=== PATIENT | male | born 1955 | race Caucasian/White ===

== ENCOUNTER 2016-11-23 12:34 | Emergency (ER) | payer BC ==
[~2016-11-23] VITALS: Ht 182.9 cm; Wt 101.0 kg
[2016-11-23 12:38] VITALS: BP 203/93; PULSE 56; RESP 16; TEMP 98.4; O2SAT 96
[2016-11-23] MEDS ORDERED: TRIBTAB PO (13:48)
[2016-11-23] MEDS ORDERED: PAXI10TA2 PO (13:50)
[2016-11-23] MEDS ORDERED: PERC10TA27 PO (13:50)
[2016-11-23 13:56] VITALS: O2SAT 97
[2016-11-23 14:02] VITALS: BP 184/92; PULSE 69; RESP 18; O2SAT 97
[2016-11-23 14:10] LABS: CHLORIDE 102 MEQ/L (98-107); POTASSIUM 3.8 MEQ/L (3.5-5.1); SODIUM (NA) 140 MEQ/L (136-145)
[2016-11-23 14:12] LABS: AUTOMATED NEUTROPHIL # 16.9 TH/MM3 (1.8-7.7); BASOPHIL % 0.2 % (0.0-2.0); HEMATOCRIT 48.7 % (39.0-51.0); LYMPH % 3.9 % (9.0-44.0); LYMPHOCYTE # 0.7 TH/MM3 (1.0-4.8); MEAN CELL VOLUME 92.4 FL (80.0-100.0); MEAN CORPUSCULAR HEMOGLOBIN 30.4 PG (27.0-34.0); MEAN CORPUSCULAR HGB CONC 32.9 % (32.0-36.0); MONO % 4.2 % (0.0-8.0); NEUT % 91.7 % (16.0-70.0); PLATELET COUNT 355 TH/MM3 (150-450); RED BLOOD COUNT 5.27 MIL/MM3 (4.50-5.90); RED CELL DISTRIBUTION WIDTH 13.3 % (11.6-17.2); WHITE BLOOD COUNT 18.4 TH/MM3 (4.0-11.0)
[2016-11-23 14:14] LABS: ANION GAP 11 MEQ/L (5-15); BICARBONATE 27.1 MEQ/L (21.0-32.0); BLOOD UREA NITROGEN 22 MG/DL (7-18)
[2016-11-23 14:17] LABS: ALT (GPT) 16 U/L (12-78); AST (GOT) 16 U/L (15-37); GLOMERULAR FILTRATION RATE 39 ML/MIN (>89)
[2016-11-23 14:18] LABS: TOTAL BILIRUBIN ADULT 0.6 MG/DL (0.2-1.0)
[2016-11-23 14:19] LABS: HEMO FLAGS DIFF FINAL
[2016-11-23 14:20] LABS: ALKALINE PHOSPHATASE 63 U/L (45-117)
[2016-11-23 14:51] LABS: BLOOD, URINE LARGE (NEG); GLUCOSE,URINE NEG (NEG); KETONE, URINE TRACE mg/dL (NEG); NITRITE,URINE NEG (NEG)
[2016-11-23 15:02] LABS: METHOD OF COLLECTION CLEAN CATCH; URINE COLOR YELLOW (YELLW/STRAW)
[2016-11-23 15:03] LABS: COMMENT (UR) CULT NOT INDICATED; CULTURE IF INDICATED CULT NOT INDICATED; SQUAMOUS EPITHELIAL CELL URINE 0-5 /hpf (0-5)
[2016-11-23] MEDS ORDERED: TRIBTAB3 PO (15:14)
--- NOTE | 2016-11-23 15:16 | PD ---
HPI Chief Complaint: Abdominal Pain Time Seen by Provider: 13:32 Travel History International Travel<30 days: No Contact w/Intl Traveler<30days: No Traveled to known affect area: No History of Present Illness HPI 51-year-old male complains of pain in the left lower abdomen. It radiates to the back. Last night he vomited all night long. No fever. No hematuria. No diarrhea. Positive flatus today. Pain is severe. It's worse with palpation. No chest pain or shortness of breath. no similar prior episodes. PFSH Past Medical History Anxiety: Yes Cardiovascular Problems: Yes (HTN ) Hypertension: Yes Kidney Stones: Yes Tetanus Vaccination: Unknown Influenza Vaccination: No Social History Alcohol Use: No Tobacco Use: Yes Substance Use: No Allergies-Medications (Allergen,Severity, Reaction): Coded Allergies: No Known Allergies (Unverified , 11/23/16) Reported Meds & Prescriptions Reported Meds & Active Scripts Active Flomax (Tamsulosin HCl) 0.4 Mg Cap 0.4 Mg PO HS Phenergan (Promethazine HCl) 25 Mg Tablet 25 Mg PO Q6H PRN Reported Tribenzor (Nlyyxfiwjp-Bnpsoqidci-Guosyfivvyuiydzazkm) 40-5-12.5 mg Tab 1 Tab PO DAILY Paxil (Paroxetine HCl) 10 Mg Tab 10 Mg PO DAILY Percocet (Oxycodone-Acetaminophen) 10-325 mg Tab 1 Tab PO Q6H PRN Review of Systems Except as stated in HPI: all other systems reviewed are Neg Physical Exam Narrative GENERAL: 61 yo M, resting comfortably SKIN: Warm and dry. HEAD: Atraumatic. Normocephalic. EYES: Pupils equal and round. No scleral icterus. No injection or drainage. ENT: No nasal bleeding or discharge. Mucous membranes pink and moist. NECK: Trachea midline. No JVD. CARDIOVASCULAR: Regular rate and rhythm. RESPIRATORY: No accessory muscle use. Clear to auscultation. Breath sounds equal bilaterally. GASTROINTESTINAL: Soft. no focus of tenderness. No TTP L flank. MUSCULOSKELETAL: Extremities without clubbing, cyanosis, or edema. No obvious deformities. NEUROLOGICAL: Awake and alert. No obvious cranial nerve deficits. Motor grossly within normal limits. Five out of 5 muscle strength in the arms and legs. Normal speech. PSYCHIATRIC: Appropriate mood and affect; insight and judgment normal. Data Data Last Documented VS Vital Signs Date Time Temp Pulse Resp B/P (MAP) Pulse Ox O2 Delivery O2 Flow Rate FiO2 11/23/16 17:04 98 Room Air 11/23/16 17:04 78 18 180/90 (120) 11/23/16 12:38 98.4 VS reviewed Orders Orders Complete Blood Count With Diff (11/23/16 13:52) Comprehensive Metabolic Panel (11/23/16 13:52) Urinalysis - C+S If Indicated (11/23/16 13:52) Iv Access Insert/Monitor (11/23/16 13:52) Oxygen Administration (11/23/16 13:52) Oximetry (11/23/16 13:52) Lipase (11/23/16 13:52) Ct Abd/Pel W/O Iv Contrast (11/23/16 14:32) Losartan (Cozaar) (11/23/16 16:00) Amlodipine (Norvasc) (11/23/16 16:00) Hydrochlorothiazide (Microzide) (11/23/16 16:00) Labs Laboratory Tests Test 11/23/16 13:30 11/23/16 14:18 White Blood Count 18.4 TH/MM3 Red Blood Count 5.27 MIL/MM3 Hemoglobin 16.0 GM/DL Hematocrit 48.7 % Mean Corpuscular Volume 92.4 FL Mean Corpuscular Hemoglobin 30.4 PG Mean Corpuscular Hemoglobin Concent 32.9 % Red Cell Distribution Width 13.3 % Platelet Count 355 TH/MM3 Mean Platelet Volume 8.4 FL Neutrophils (%) (Auto) 91.7 % Lymphocytes (%) (Auto) 3.9 % Monocytes (%) (Auto) 4.2 % Eosinophils (%) (Auto) 0.0 % Basophils (%) (Auto) 0.2 % Neutrophils # (Auto) 16.9 TH/MM3 Lymphocytes # (Auto) 0.7 TH/MM3 Monocytes # (Auto) 0.8 TH/MM3 Eosinophils # (Auto) 0.0 TH/MM3 Basophils # (Auto) 0.0 TH/MM3 CBC Comment DIFF FINAL Differential Comment Blood Urea Nitrogen 22 MG/DL Creatinine 1.80 MG/DL Random Glucose 128 MG/DL Total Protein 7.9 GM/DL Albumin 3.9 GM/DL Calcium Level 9.3 MG/DL Alkaline Phosphatase 63 U/L Aspartate Amino Transf (AST/SGOT) 16 U/L Alanine Aminotransferase (ALT/SGPT) 16 U/L Total Bilirubin 0.6 MG/DL Sodium Level 140 MEQ/L Potassium Level 3.8 MEQ/L Chloride Level 102 MEQ/L Carbon Dioxide Level 27.1 MEQ/L Anion Gap 11 MEQ/L Estimat Glomerular Filtration Rate 39 ML/MIN Lipase 97 U/L Urine Collection Type CLEAN CATCH Urine Color YELLOW Urine Turbidity CLEAR Urine pH 7.0 Urine Specific [place] 1.022 Urine Protein 30 mg/dL Urine Glucose (UA) NEG mg/dL Urine Ketones TRACE mg/dL Urine Occult Blood LARGE Urine Nitrite NEG Urine Bilirubin NEG Urine Leukocyte Esterase NEG Urine RBC 20-24 /hpf Urine WBC 3-5 /hpf Urine Squamous Epithelial Cells 0-5 /hpf Microscopic Urinalysis Comment CULT NOT INDICATED MDM Medical Decision Making Medical Screen Exam Complete: Yes Emergency Medical Condition: Yes Medical Record Reviewed: Yes Differential Diagnosis Constipation, Gastritis, Acute Cholecystitis, Biliary Colic, Pancreatitis, PAGE , Hepatitis, Bowel Obstruction, Cystitis, Mesenteric Ischemia, AAA, Appendicitis , Renal Stone/Hydronephrosis, GERD, perforated viscous Narrative Course CBC & BMP Diagram 11/23/16 13:30 Total Protein 7.9, Albumin 3.9, Calcium Level 9.3, Alkaline Phosphatase 63, Aspartate Amino Transf (AST/SGOT) 16, Alanine Aminotransferase (ALT/SGPT) 16, Total Bilirubin 0.6 Lipase normal Urinalysis UTI present Last 24 hours Impressions Abdomen/Pelvis CT 11/23/16 1432 Signed Impressions: Service Date/Time: Wednesday, November 23, 2016 15:43 - CONCLUSION: 1. 2 mm left UVJ calcified calculus with mild left hydroureteronephrosis. 2. Multiple additional 1-2 mm bilateral calyceal renal calcified calculi. 1. Jean Tamayo MD Pt resting comfortably at time of reassessment. Return precautions discussed. Diet/lifestyle modification discussed. Pt agreeable with plan. Of note, mild renal insufficiency d/w patient's significant other who took notes and agrees to follow up with PMD in 2 weeks for repeat blood work. Avoidance of NSAIDs in the interim discussed. Diagnosis Primary Impression: Ureteric calculus Additional Impression: Vomiting Qualified Codes: R11.2 - Nausea with vomiting, unspecified Referrals: Denny Linares DO 2 days Additional Instructions: You have a choice when it comes to health care, and we are glad that you chose [facility]. Hopefully, we have met your expectations on today's visit. You are welcome to return to [facility] at any time, as we are committed to meeting the health care needs of our community. Med/Other Pt SpecificInfo: Prescription(s) given Scripts Tamsulosin (Flomax) 0.4 Mg Cap 0.4 MG PO HS for Manage Prostate Problems, #4 CAP 0 Refills Prov: Duc Oneill MD 11/23/16 Promethazine (Phenergan) 25 Mg Tablet 25 MG PO Q6H Y for NAUSEA OR VOMITING, #10 TAB 0 Refills Prov: Duc Oneill MD 11/23/16 Disposition: 01 DISCHARGE HOME Condition: Stable Duc Oneill MD Nov 23, 2016 15:16
[2016-11-23] MEDS ORDERED: amLODIPine BESYLATE 5 MG TAB PO ONE (16:00)
[2016-11-23] MEDS ORDERED: LOSARTAN 50 MG TAB PO ONE (16:00)
[2016-11-23] MEDS ORDERED: HYDROCHLOROTHIAZIDE 12.5 MG CAP PO ONE (16:00)
[2016-11-23] MEDS ORDERED: PROM25TA10 PO (16:16)
[2016-11-23] MEDS ORDERED: TAMS5CAP PO (16:16)
--- NOTE | 2016-11-23 16:22 | RADRPT ---
EXAM DATE/TIME: 11/23/2016 15:43 [facility] COMPARISON: No previous studies available for comparison. INDICATIONS : Back pain. ORAL CONTRAST: No oral contrast ingested. RADIATION DOSE: 26.51 CTDIvol (mGy) MEDICAL HISTORY : Renal calculi. SURGICAL HISTORY : None. ENCOUNTER: Initial ACUITY: 2 days PAIN SCALE: 8/10 LOCATION: low back. TECHNIQUE: Volumetric scanning of the abdomen and pelvis was performed. Using automated exposure control and ad justment of the mA and/or kV according to patient size, radiation dose was kept as low as reasonably achievable to obtain optimal diagnostic quality images. DICOM format image data is available electro nically for review and comparison. FINDINGS: LOWER LUNGS: The visualized lower lungs are clear. LIVER: Visualized portions of the liver are grossly unremarkable without significant intrahepatic ductal dil atation. No calcified gallstones. SPLEEN: This is portions of the spleen are unremarkable. PANCREAS: Within normal limits. KIDNEYS: There is mild left hydroureteronephrosis with mild perinephric and periureteral stranding. There is a 2 mm left UVJ calcified calculus. Presentation of scattered calyceal calculi noted bilaterally measu ring approximately 1-2 mm. No significant hydronephrosis or hydroureter on the right. ADRENAL GLANDS: Within normal limits. VASCULAR: There is no aortic aneurysm. BOWEL/MESENTERY: The stomach, small bowel, and colon demonstrate no acute abnormality. There is no free intraperitone al air or fluid. ABDOMINAL WALL: Within normal limits. RETROPERITONEUM: There is no lymphadenopathy. BLADDER: No wall thickening or mass. REPRODUCTIVE: Within normal limits. INGUINAL: There is no lymphadenopathy or hernia. MUSCULOSKELETAL: Within normal limits for patient age. CONCLUSION: 1. 2 mm left UVJ calcified calculus with mild left hydroureteronephrosis. 2. Multiple additional 1-2 mm bilateral calyceal renal calcified calculi. 1. Jean Tamayo MD on November 23, 2016 at 16:16 Board Certified Radiologist. This report was verified electronically.
[2016-11-23 17:04] VITALS: BP 180/90
== END 2016-11-23 17:06 | disposition home or self-care (01) ==
LOC: PHED 12:34
DX: N20.1 Calculus of ureter (principal); R11.2 Nausea with vomiting, unspecified; N28.9 Disorder of kidney and ureter, unspecified; D72.829 Elevated white blood cell count, unspecified; I10 Essential (primary) hypertension; Z72.0 Tobacco use; Z86.59 Personal history of other mental and behavioral disorders; Z86.79 Personal history of other diseases of the circulatory system; Z87.442 Personal history of urinary calculi
CPT/HCPCS: 74176; 80053; 81001; 83690; 85025